=== PATIENT | female | born 1965 | race Caucasian/White ===

== ENCOUNTER 2017-12-05 10:23 | Emergency (ER) | payer BC ==
[2017-12-05 10:39] VITALS: BP 119/64
--- NOTE | 2017-12-05 10:53 | UC ---
Respiratory Complaint HPI - HPI Summary HPI Summary: The patient is a 52-year-old female that presents here with sore throat 2 days. And that she may have strep. 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 She has had no fever or chills. She has had mild nasal congestion. - History of Current Complaint Chief Complaint: UCGeneralIllness Stated Complaint: SORE THROAT Time Seen by Provider: 12/05/17 10:29 Hx Obtained From: Patient Hx Last Menstrual Period: September 2017 Onset/Duration: Gradual Onset, Lasting Days Timing: Constant Severity Initially: Mild Severity Currently: Mild Pain Intensity: 4 Pain Scale Used: 0-10 Numeric Associated Signs And Symptoms: Positive: Nasal Congestion - Allergies/Home Medications Allergies/Adverse Reactions: Allergies Allergy/AdvReac Type Severity Reaction Status Date / Time No Known Allergies Allergy Verified 12/05/17 10:35 Home Medications: Home Medications Ascorbic Acid TAB* [Vitamin C TAB*] 500 mg PO DAILY 12/05/17 [History Confirmed 12/05/17] Cholecalciferol TAB* [Vitamin D TAB*] 1,000 unit PO DAILY 12/05/17 [History Confirmed 12/05/17] Vit A and D3 in Cod Liver Oil [Cod Liver Oil W/Vitamins] 1 cap PO DAILY [History Confirmed 12/05/17] PMH/Surg Hx/FS Hx/Imm Hx Previously Healthy: Yes - Surgical History Surgical History: None - Family History Known Family History: Negative: Cardiac Disease, Hypertension, Diabetes - Social History Alcohol Use: None Substance Use Type: None Smoking Status (MU): Never Smoked Tobacco Review of Systems Constitutional: Negative Skin: Negative Eyes: Negative ENT: Sore Throat Respiratory: Negative Cardiovascular: Negative Gastrointestinal: Negative Genitourinary: Negative Motor: Negative Neurovascular: Negative Musculoskeletal: Negative Neurological: Negative Psychological: Negative Is Patient Immunocompromised?: No All Other Systems Reviewed And Are Negative: Yes Physical Exam Triage Information Reviewed: Yes Appearance: Well-Appearing, No Pain Distress, Well-Nourished Vital Signs: Initial Vital Signs Temp 98.6 F 12/05/17 10:36 Pulse 72 12/05/17 10:36 Resp 16 12/05/17 10:36 BP 119/64 12/05/17 10:36 Pulse Ox 99 12/05/17 10:36 Eyes: Positive: Conjunctiva Clear ENT: Positive: Pharyngeal erythema. Negative: Nasal congestion, Nasal drainage , Tonsillar swelling, Tonsillar exudate, Trismus, Muffled voice Neck: Positive: Supple, Nontender, No Lymphadenopathy Respiratory: Positive: Lungs clear, Normal breath sounds, No respiratory distress, No accessory muscle use Cardiovascular: Positive: RRR, No Murmur Musculoskeletal: Positive: ROM Intact, No Edema Neurological: Positive: Alert Psychological Exam: Normal Skin Exam: Normal UC Diagnostic Evaluation - Laboratory O2 Sat by Pulse Oximetry: 99 - normal/not hypoxic Diagnostic Studies Comment: strep (-) Respiratory Course/Dx - Differential Dx/Diagnosis Provider Diagnoses: pharyngitis. suspect viral URI Discharge - Sign-Out/Discharge Documenting (check all that apply): Patient Departure - Discharge Plan Condition: Stable Disposition: HOME Patient Education Materials: Pharyngitis (ED) Referrals: Saniya Cervantes MD [Primary Care Provider] - If Needed (recheck in 4 days if not better) Additional Instructions: strep (-) - Billing Disposition and Condition Condition: STABLE Disposition: Home
== END 2017-12-05 11:00 | disposition home or self-care (01) ==
LOC: UCCORT 10:23
DX: J02.9 Acute pharyngitis, unspecified (principal)
CPT/HCPCS: 87651; 99211; G0463